=== PATIENT | male | born 1955 | race American Indian/Alaskan Native ===

== ENCOUNTER 2021-10-09 09:25 | Emergency (ER) | payer MEDICARE ==
--- NOTE | 2021-10-09 10:36 | Emergency Department Report ---
HPI - General Chief Complaint: Dyspnea/Respdistress Time Seen by Provider: 10/09/21 10:00 - HPI HPI: 66-year-old -[place] male presents to the emergency department with a complaint of shortness of breath that has been going on over the past week. Initially the patient came in 6 days ago, on 10/04, and was admitted to the hospital with acute CHF. Previous to this the patient had a past medical history of hypertension, tobacco use, and history of cocaine use/abuse. He was seen by cardiology and had an echocardiogram that showed an EF of 45 to 50%, had a negative stress test, and recommendations for medications were made. The patient says "on Saturday I found out that cardiology was going to let me go, but the medicine doctor told me that we needed to rule out a blood clot in the lungs." The patient says that he found out he had an outstanding warrant and that is the reason why he signed out AGAINST MEDICAL ADVICE. He never did get a ny of the recommended medications. He now presents with continued shortness of breath saying that he wants to continue his evaluation. He denies using any illicit drugs over the weekend. ED Past Medical Hx - Past Medical History Hx Hypertension: Yes Hx HIV: No Additional medical history: High cholesterol - Surgical History Additional Surgical History: Unable to obtain - Social History Smoking Status: Current Every Day Smoker - Medications Home Medications: Home Medications Medication Instructions Recorded Confirmed Last Taken Type AtorvaSTATin [Lipitor] 40 mg PO QHS 10/05/21 10/05/21 10/03/21 History Losartan [Cozaar] 25 mg PO QDAY 10/05/21 10/05/21 10/03/21 History amLODIPine [Norvasc] 10 mg PO DAILY 10/05/21 10/05/21 10/03/21 History Albuterol Mdi (or & Nicu Only) 2 puff IH Q6H PRN #1 10/09/21 Unknown Rx [ProAir HFA Inhaler] Apixaban [Eliquis] 5 mg PO BID #74 tablet 10/09/21 Unknown Rx Furosemide [Lasix] 20 mg PO QDAY #14 tablet 10/09/21 Unknown Rx ED Review of Systems ROS: Stated complaint: MEDICAL CLERANCE Other details as noted in HPI Comment: All other systems reviewed and negative Constitutional: denies: chills, fever Eyes: denies: eye pain, vision change ENT: denies: ear pain, throat pain Respiratory: cough, shortness of breath Cardiovascular: denies: chest pain, edema Gastrointestinal: denies: abdominal pain, vomiting Genitourinary: denies: dysuria, discharge Musculoskeletal: denies: back pain, arthralgia Skin: denies: rash, lesions Neurological: denies: headache, weakness Physical Exam - Physical Exam Vital Signs: Vital Signs 10/09/21 09:50 Temperature 98.7 F Pulse Rate 59 L Respiratory 16 Rate Blood Pressure 154/64 [Right] O2 Sat by Pulse 96 Oximetry Physical Exam: GENERAL: The patient is well-developed well-nourished. HENT: Normocephalic. Atraumatic. Patient has moist mucous membranes. EYES: Extraocular motions are intact. NECK: Supple. Trachea is midline. CHEST/LUNGS: Clear to auscultation. No tachypnea or accessory muscle use. There is no respiratory distress noted. HEART/CARDIOVASCULAR: Regular. There is no tachycardia. There is no murmur. ABDOMEN: Abdomen is soft, nontender. Patient has normal bowel sounds. There is no abdominal distention. SKIN: Skin is warm and dry. No lower extremity edema. NEURO: The patient is awake, alert, and oriented. The patient is cooperative. The patient has no focal neurologic deficits. Normal speech. MUSCULOSKELETAL: There is no tenderness or deformity. There is no limitation range of motion. ED Course Vital Signs 10/09/21 09:50 Temperature 98.7 F Pulse Rate 59 L Respiratory 16 Rate Blood Pressure 154/64 [Right] O2 Sat by Pulse 96 Oximetry ED Medical Decision Making - Lab Data Result diagrams: 10/09/21 10:17 10/09/21 10:17 Lab Results 10/09/21 10/09/21 10/09/21 Range/Units 10:17 10:17 10:17 WBC 6.1 (4.5-11.0) K/mm3 RBC 4.75 (3.65-5.03) M/mm3 Hgb 14.4 (11.8-15.2) gm/dl Hct 44.1 (35.5-45.6) % MCV 93 (84-94) fl MCH 30 (28-32) pg MCHC 33 (32-34) % RDW 13.9 (13.2-15.2) % Plt Count 191 (140-440) K/mm3 Lymph % (Auto) 26.2 (13.4-35.0) % [place] % (Auto) 8.8 H (0.0-7.3) % Eos % (Auto) 1.7 (0.0-4.3) % Baso % (Auto) 0.5 (0.0-1.8) % Lymph # (Auto) 1.6 (1.2-5.4) K/mm3 [place] # (Auto) 0.5 (0.0-0.8) K/mm3 Eos # (Auto) 0.1 (0.0-0.4) K/mm3 Baso # (Auto) 0.0 (0.0-0.1) K/mm3 Seg Neutrophils % 62.8 (40.0-70.0) % Seg Neutrophils # 3.9 (1.8-7.7) K/mm3 PT (12.2-14.9) Sec. INR (0.87-1.13) APTT (24.2-36.6) Sec. D-Dimer 306.45 H (0-234) ng/mlDDU Sodium 145 (137-145) mmol/L Potassium 4.3 D (3.6-5.0) mmol/L Chloride 106.8 (98-107) mmol/L Carbon Dioxide 26 (22-30) mmol/L Anion Gap 17 mmol/L BUN 18 (9-20) mg/dL Creatinine 1.1 (0.8-1.3) mg/dL Estimated GFR > 60 ml/min BUN/Creatinine Ratio 16 % Glucose 108 H (75-100) mg/dL Calcium 9.1 (8.4-10.2) mg/dL Total Bilirubin 0.20 (0.1-1.2) mg/dL AST 22 (5-40) units/L ALT 44 (7-56) units/L Alkaline Phosphatase 76 (35-129) units/L Troponin T 0.027 (0.00-0.029) ng/mL NT-Pro-B Natriuret Pep 2401 H (0-900) pg/mL Total Protein 6.8 (6.3-8.2) g/dL Albumin 3.9 (3.9-5) g/dL Albumin/Globulin Ratio 1.3 % 10/09/21 Range/Units 13:25 WBC (4.5-11.0) K/mm3 RBC (3.65-5.03) M/mm3 Hgb (11.8-15.2) gm/dl Hct (35.5-45.6) % MCV (84-94) fl MCH (28-32) pg MCHC (32-34) % RDW (13.2-15.2) % Plt Count (140-440) K/mm3 Lymph % (Auto) (13.4-35.0) % [place] % (Auto) (0.0-7.3) % Eos % (Auto) (0.0-4.3) % Baso % (Auto) (0.0-1.8) % Lymph # (Auto) (1.2-5.4) K/mm3 [place] # (Auto) (0.0-0.8) K/mm3 Eos # (Auto) (0.0-0.4) K/mm3 Baso # (Auto) (0.0-0.1) K/mm3 Seg Neutrophils % (40.0-70.0) % Seg Neutrophils # (1.8-7.7) K/mm3 PT 12.9 (12.2-14.9) Sec. INR 0.88 (0.87-1.13) APTT 31.0 (24.2-36.6) Sec. D-Dimer (0-234) ng/mlDDU Sodium (137-145) mmol/L Potassium (3.6-5.0) mmol/L Chloride (98-107) mmol/L Carbon Dioxide (22-30) mmol/L Anion Gap mmol/L BUN (9-20) mg/dL Creatinine (0.8-1.3) mg/dL Estimated GFR ml/min BUN/Creatinine Ratio % Glucose (75-100) mg/dL Calcium (8.4-10.2) mg/dL Total Bilirubin (0.1-1.2) mg/dL AST (5-40) units/L ALT (7-56) units/L Alkaline Phosphatase (35-129) units/L Troponin T (0.00-0.029) ng/mL NT-Pro-B Natriuret Pep (0-900) pg/mL Total Protein (6.3-8.2) g/dL Albumin (3.9-5) g/dL Albumin/Globulin Ratio % - EKG Data -: EKG Interpreted by Me EKG shows normal: sinus rhythm (PVCs), axis, intervals, QRS complexes (LVH), ST- T waves (T wave inversions to the lateral leads) Rate: bradycardia (56 bpm) - EKG Data When compared to previous EKG there are: changes noted (New T wave inversions to the lateral leads) Interpretation: other (Sinus rhythm at 56 bpm, PVCs, LVH, T wave inversions to the lateral leads, no ST elevation OR) - Radiology Data Radiology results: report reviewed, image reviewed interpreted by me: Chest x-ray does not show any acute process. There are no pleural effusions, obvious pneumonia and there is no pneumothorax. No widened mediastinum. CT angio chest INDICATION / CLINICAL INFORMATION: SOB, elevated dimer OMNI 350 100 ML. TECHNIQUE: Axial CT images were obtained through the chest after injection of IV contrast. 3 plane MIP and/or 3D reconstructions were produced. All CT scans at this location are performed using CT dose reduction for [employer] by means of automated exposure control. COMPARISON: None available. FINDINGS: PULMONARY ARTERIES: There are filling defects seen within the bilateral lower lobe pulmonary arteries. On the left it is a small component that is linear in morphology seen on images 222 to 228 of series 4 which is age indeterminate and could be acute or chronic HEART: RV to LV ratio is normal. MEDIASTINUM / NADYA: No significant abnormality. LUNGS: Significant peribronchial thickening. Severe emphysema. No pleural effusion. No pneumothorax. ADDITIONAL FINDINGS: None. UPPER ABDOMEN: No acute findings. SKELETAL STRUCTURES: No significant osseous abnormality. IMPRESSION: 1. Small quantity of lower lobe pulmonary emboli. No CT evidence of right heart strain. 2. Emphysema with peribronchial thickening which could suggests small airways disease such as bronchitis. - Medical Decision Making This patient presents to the emergency department saying that he is returning to complete his evaluation after he left AMA a few days ago. Initially the patient was admitted for acute decompensated congestive heart failure. He says that he was told that he needed evaluation for blood clots. The other issue is that the patient did not get any prescriptions of the recommended medications from the medicine and cardiology services. On examination the patient does not appear in any respiratory or acute distress. Heart and lung sounds are normal to auscultation. There is no lower extremity edema appreciated. Patient's labs are remarkable for a slightly elevated and equivocal D-dimer level of about 300, and an elevated proBNP of about 2400 that is consistent with his previous visit. The patient was given a dose of IV Lasix to give him some diuresis. Due to the slightly elevated D-dimer level, the patient had a CT angiography of the chest that showed a small quantity of pulmonary emboli in the bilateral lower lungs, but no evidence of right heart strain. Patient's vital signs have been reassuring including being afebrile and no hypoxia. He does not have any tachypnea or tachycardia. The patient does not appear to have decompensated heart failure currently. He just recently had an echocardiogram and a negative stress test during his last visit. Cardiology had signed off on the patient and said that he was to follow-up on October 16 in the [facility]. In regards to the pulmonary emboli found, the patient does not appear to have a large clot burden. He recently had a bilateral lower extremity venous Doppler ultrasound that did not show any evidence of DVT. No evidence of right heart strain. For all these reasons the patient appears safe for discharge home once started on anticoagulation. He was given a dose of Eliquis and watched for 2 hours until he became therapeutic. The patient will be given a prescription for a 1 month course of Eliquis and the patient understands that he will need to c ontinue on this medication for multiple months and therefore be compliant with outpatient follow-up. The patient was given a prescription for his Lasix and we discussed about his appointment on October 16 and that he needs to call to confirm this appointment at the [facility]. The patient will return to the emergency department with any worsening of his symptoms or with any acute distress. Critical Care Time: No Critical care attestation.: If time is entered above; I have spent that time in minutes in the direct care of this critically ill patient, excluding procedure time. ED Disposition Clinical Impression: CHF (congestive heart failure) Qualifiers: Heart failure type: unspecified Heart failure chronicity: unspecified Qualified Code(s): I50.9 - Heart failure, unspecified Pulmonary emboli Qualifiers: Pulmonary embolism type: unspecified Chronicity: acute Acute cor pulmonale presence: unspecified Qualified Code(s): I26.99 - Other pulmonary embolism without acute cor pulmonale Disposition: HOME / SELF CARE / HOMELESS Is pt being admited?: No Condition: Stable Instructions: Pulmonary Embolism, Heart Failure, Diagnosis Additional Instructions: Please follow-up with a primary care physician in the next few days. I have given you a referral for a local primary care physician, Dr. Baires, and a primary care clinic, [facility]. It appears that [facility] has set you up for an appointment in their [place] clinic on October 16 at 3 PM. Please call the number listed to confirm this appointment. Please take all medications as prescribed. Return to the emergency department with any worsening of your symptoms, new or concerning symptoms not addressed during this current emergency department visit, or with any acute distress. Prescriptions: Apixaban [Eliquis] 5 mg PO BID #74 tablet Furosemide [Lasix] 20 mg PO QDAY #14 tablet Albuterol Mdi (or & Nicu Only) [ProAir HFA Inhaler] 2 puff IH Q6H PRN #1 PRN Reason: Shortness Of Breath Referrals: PRIMARY MD LANCE [Primary Care Provider] - 3-5 Days MARIAH DAVIS MD [Staff Physician] - 10/16/21 3:00 pm (Your appointment should be scheduled for the [facility], Not [place]. Please call to confirm this appointment. ) Time of Disposition: 14:39
[2021-10-09 10:41] LABS: Basophils % (Auto) 0.5 % (0.0-1.8); Eosinophils # (Auto) 0.1 K/mm3 (0.0-0.4); Eosinophils % (Auto) 1.7 % (0.0-4.3); Hematocrit 44.1 % (35.5-45.6); Hemoglobin 14.4 gm/dl (11.8-15.2); Lymphocytes # (Auto) 1.6 K/mm3 (1.2-5.4); Lymphocytes % (Auto) 26.2 % (13.4-35.0); Mean Corpuscular HGB Conc 33 % (32-34); Mean Corpuscular Volume 93 fl (84-94); Monocytes # (Auto) 0.5 K/mm3 (0.0-0.8); Monocytes % (Auto) 8.8 % (0.0-7.3); Red Blood Count 4.75 M/mm3 (3.65-5.03); Red Cell Distribution Width 13.9 % (13.2-15.2)
[2021-10-09 10:47] LABS: Platelet Count 191 K/mm3 (140-440)
--- NOTE | 2021-10-09 10:49 | XRay Report ---
CHEST 2 VIEWS INDICATION: SOB. COMPARISON: 10/04/2021 FINDINGS: Support devices: None. Heart: Within normal limits. Lungs/pleura: No acute air space or interstitial disease. Pulmonary venous congestion has resolved s una the previous exam. No pleural effusion or pneumothorax. Additional findings: None. IMPRESSION: No acute findings. Signer Name: Martin Badillo Jr, MD Signed: 10/09/2021 10:45 AM Workstation Name: [id number]
[2021-10-09 11:09] LABS: Alanine Aminotransferase 44 units/L (7-56); Albumin 3.9 g/dL (3.9-5); BUN/Creatinine Ratio 16; Blood Urea Nitrogen 18 mg/dL (9-20); Calcium 9.1 mg/dL (8.4-10.2); Hemolysis Index 5
[2021-10-09] MEDS ORDERED: FUROSEMIDE 20 MG/2 ML INJ IV ONE (11:45)
--- NOTE | 2021-10-09 12:56 | Cat Scan Report ---
CT angio chest INDICATION / CLINICAL INFORMATION: SOB, elevated dimer OMNI 350 100 ML. TECHNIQUE: Axial CT images were obtained through the chest after injection of IV contrast. 3 plane MIP and/or 3D reconstructions were produced. All CT scans at this location are performed using CT dose reduction f or ALARA by means of automated exposure control. COMPARISON: None available. FINDINGS: PULMONARY ARTERIES: There are filling defects seen within the bilateral lower lobe pulmonary arteries . On the left it is a small component that is linear in morphology seen on images 222 to 228 of serie s 4 which is age indeterminate and could be acute or chronic HEART: RV to LV ratio is normal. MEDIASTINUM / NADYA: No significant abnormality. LUNGS: Significant peribronchial thickening. Severe emphysema. No pleural effusion. No pneumothorax. ADDITIONAL FINDINGS: None. UPPER ABDOMEN: No acute findings. SKELETAL STRUCTURES: No significant osseous abnormality. IMPRESSION: 1. Small quantity of lower lobe pulmonary emboli. No CT evidence of right heart strain. 2. Emphysema with peribronchial thickening which could suggests small airways disease such as bronchi tis. I informed dr Joshi. Signer Name: Gerard Ashley MD Signed: 10/09/2021 12:51 PM Workstation Name: [id number]
[2021-10-09] MEDS ORDERED: APIXABAN 5 MG TAB PO ONE (13:02)
[2021-10-09 13:20] VITALS: BP 154/58
[2021-10-09 13:42] LABS: INR 0.88 (0.87-1.13)
--- NOTE | 2021-10-12 09:59 | Electrocardiograph Report ---
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
== END 2021-10-09 14:56 | disposition home or self-care (01) ==
LOC: ED 09:25
DX: I50.9 Heart failure, unspecified (principal); I26.99 Other pulmonary embolism without acute cor pulmonale; F17.200 Nicotine dependence, unspecified, uncomplicated; I10 Essential (primary) hypertension
CPT/HCPCS: 36415; 71046; 71275; 80053; 83880; 84484; 85025; 85379; 85610; 85730; 93005; 96374; 99284; J1940; Q9967

== ENCOUNTER 2021-11-09 07:50 | Day surgery (SDC) | payer MEDICARE ==
[2021-11-09 09:06] LABS: Basophils % (Auto) 0.6 % (0.0-1.8); Eosinophils # (Auto) 0.1 K/mm3 (0.0-0.4); Hematocrit 45.1 % (35.5-45.6); Hemoglobin 14.2 gm/dl (11.8-15.2); Lymphocytes # (Auto) 1.9 K/mm3 (1.2-5.4); Lymphocytes % (Auto) 34.8 % (13.4-35.0); Mean Corpuscular HGB Conc 31 % (32-34); Mean Corpuscular Volume 93 fl (84-94); Monocytes # (Auto) 0.6 K/mm3 (0.0-0.8); Monocytes % (Auto) 11.6 % (0.0-7.3); Red Blood Count 4.85 M/mm3 (3.65-5.03); Red Cell Distribution Width 13.6 % (13.2-15.2)
[2021-11-09 09:11] LABS: Platelet Count 171 K/mm3 (140-440)
[2021-11-09] MEDS ORDERED: ASPIRIN EC 325 MG TAB PO ONE ×2 (09:13→10:00)
[2021-11-09 09:16] LABS: BUN/Creatinine Ratio 18; Blood Urea Nitrogen 18 mg/dL (9-20); Calcium 9.5 mg/dL (8.4-10.2); Hemolysis Index 13
[2021-11-09] MEDS: SODIUM CHLORIDE 0.9% 500 ML 500 ML IV SCH ×2 (09:41→10:18)
[2021-11-09 09:46] LABS: INR 0.91 (0.87-1.13)
[2021-11-09] MEDS ORDERED: NITROGLYCERIN SYRINGE 3 ML ONE (09:46)
[2021-11-09] MEDS ORDERED: ATROPINE 0.1% (1 MG/10 ML) CARDIAC SYRINGE ONE (10:15)
[2021-11-09] MEDS: fentaNYL 100 MCG/2 ML INJ ONE ×2 (10:16→10:30)
[2021-11-09] MEDS: MIDAZOLAM 2 MG/2 ML INJ ONE ×2 (10:16→10:30)
[2021-11-09] MEDS: LIDOCAINE (2%) 20 MG/1 ML VIAL 20 ML MDV INFILTRATI ONE ×2 (10:17→10:30)
[2021-11-09] MEDS: VERAPAMIL 5 MG/2 ML INJ ONE ×2 (10:17→10:31)
[2021-11-09] MEDS: HEPARIN 10,000 UNITS/10 ML VIAL ONE ×2 (10:18→10:31)
[2021-11-09] MEDS: HEPARIN/NS 5000 UNIT/500ML 1,000 ML IR ONE ×2 (10:18→10:30)
[2021-11-09] MEDS ORDERED: traMADol 50 MG TAB PO PRN (10:51)
[2021-11-09] MEDS ORDERED: HYDROcodone/ACETAMINOPHEN 5-325 MG TAB PO PRN (10:51)
--- NOTE | 2021-11-09 10:54 | Discharge Summary ---
Short Stay Discharge Plan Activity: advance as tolerated Weight Bearing Status: Full Weight Bearing Diet: low fat, low cholesterol, low salt Wound: keep clean and dry Special Instructions: no heavy lifting (3 days) Follow up with: PRIMARY CARE, [Primary Care Provider] - 7 Days MARIAH DAVIS MD [Staff Physician] - 7 Days
--- NOTE | 2021-11-09 10:54 | Cardiac Catherization Report ---
DATE OF SERVICE: 11/09/2021 REASON FOR PROCEDURE: Shortness of breath and cardiomyopathy. PROCEDURES: 1. Left heart catheterization. 2. Selective left and right coronary angiography. 3. Left ventricular angiography. 4. Sedation time start 10:30, end 10:37. DESCRIPTION OF PROCEDURE: The patient was prepped and draped in a sterile fashion after informed consent. The right radial cath site was prepped and draped after negative Sushant's test. The right radial artery was entered using Seldinger technique followed by placement of a 6-Maltese hydrophilic sheath. Routine radial cocktail was administered via the sheath. Selective left and right coronary angiography was performed using #3.5 left Freedom and #4 right Freedom. The right Freedom was used for left ventricular angiography. Catheters were then removed, sheath removed and hemostasis achieved using a TR band. The patient was returned to the postprocedure unit in stable condition. There were no complications. FINDINGS: HEMODYNAMICS: Left ventricular end-diastolic pressure was 28, following coronary angiography. The ascending aortic pressure 140/74. There was no significant pressure gradient on pullback across the aortic valve. CORONARY ANGIOGRAPHY: Left main coronary artery was angiographically normal. There was a 30% -40% luminal stenosis of the mid left anterior descending artery, otherwise this vessel and its diagonal branches were free of significant disease. The circumflex artery and its obtuse marginal branches contained mild luminal irregularities. The right coronary artery was dominant. This vessel contained a 30% stenosis of its proximal segment, followed by mild luminal irregularities in the distal AV groove segment. The left ventricle was moderately to severely dilated. There was severe left ventricular systolic dysfunction with diffuse hypokinesis, left ventricular ejection fraction 25%-30%. CONCLUSION: 1. 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 2. Dilated, nonischemic cardiomyopathy, severe left ventricular systolic dysfunction. Ejection fraction 25%-30%. RECOMMENDATIONS: Medical therapy for nonischemic cardiomyopathy, risk factor modification. TID: [id number] RECEIPT: [id number] CA/SAY
[2021-11-09] MEDS ORDERED: SODIUM CHLORIDE 0.9% 1000 ML 1,000 ML IV SCH (11:00)
[2021-11-09 13:35] VITALS: BP 116/77
--- NOTE | 2021-11-10 13:05 | Electrocardiograph Report ---
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
== END 2021-11-09 14:15 | disposition home or self-care (01) ==
LOC: CATHLABREC 07:50
PROVIDERS: ATTEND Internal Medicine Cardiovascular Disease
DX: R06.02 Shortness of breath (principal); I25.10 Atherosclerotic heart disease of native coronary artery without angina pectoris; I42.9 Cardiomyopathy, unspecified; F17.210 Nicotine dependence, cigarettes, uncomplicated; Z79.899 Other long term (current) drug therapy; Z98.890 Other specified postprocedural states
CPT/HCPCS: 36415; 80048; 85025; 85610; 85730; 93005; 93458; 99156; C1894; J1644; J1815; J2250; J3010; J3490; J7040; J0461; Q9967